=== PATIENT | male | born 1940 | race Caucasian/White ===

== ENCOUNTER 2017-05-15 11:19 | Emergency (ER) | payer MEDICARE, OTHER ==
[2017-05-15 12:43] VITALS: BP 163/93
== END 2017-05-15 15:36 | disposition left against medical advice (07) ==
LOC: JP.ED 11:19
DX: Z53.21 Procedure and treatment not carried out due to patient leaving prior to being seen by health care provider (principal)

== ENCOUNTER 2018-12-23 12:03 | Inpatient (IN) | payer MEDICARE ==
--- NOTE | 2018-12-23 12:30 | EDM.PDOC ---
ED HPI GENERAL MEDICAL PROBLEM - General Chief Complaint: Chest Pain Stated Complaint: [facility] Time Seen by Provider: 12/23/18 12:15 Source of Information: Reports: Patient, EMS History Limitations: Reports: No Limitations - History of Present Illness INITIAL COMMENTS - FREE TEXT/NARRATIVE: 78-year-old male who lives independently slipped on the ice one week ago falling hard on his left side. It's been 7 days and is having persistent significant left-sided chest wall pain, some friends visited him today and saw how miserable he was so called the ambulance. He is having some pleuritic pain with breathing but no shortness of breath, denies fevers or chills or abdominal pain. Did not hurt himself anywhere else such as an extremity or neck or head. His pain is fairly localized to the left lateral chest wall. Onset: Sudden Duration: Day(s): (7 days ago) Location: Reports: Chest (Left lateral chest) Quality: Reports: Sharp, Stabbing Worsens with: Reports: Breathing, Movement Associated Symptoms: Reports: No Other Symptoms rib Pain Score (Numeric/FACES): 7 - Related Data Allergies Allergy/AdvReac Type Severity Reaction Status Date / Time No Known Allergies Allergy Verified 12/23/18 12:09 Home Meds: Home Meds Donepezil HCl 1 tab PO DAILY 11/05/13 [History] Furosemide 40 mg PO DAILY 11/05/13 [History] Lisinopril 40 mg PO DAILY 11/05/13 [History] PARoxetine HCl [Paroxetine HCl] 20 mg PO DAILY 11/05/13 [History] Simvastatin 40 mg PO DAILY 11/05/13 [History] Warfarin Sodium 7.5 mg PO DAILY 11/05/13 [History] Albuterol [Proventil] 2.5 mg INH BID 09/22/14 [History] Ipratropium [Atrovent] 1 applic INH QID 09/22/14 [History] Aspirin [Low Dose Aspirin EC] 81 mg PO DAILY 10/18/14 [History] Multivitamin with Minerals [Multiple Vitamin] 1 tab PO DAILY 10/18/14 [History] amLODIPine [Norvasc] 5 mg PO BID 10/18/14 [History] Oxybutynin Chloride [Ditropan Xl] 10 mg PO DAILY 12/23/18 [History] Tamsulosin [Flomax] 0.4 mg PO DAILY 12/23/18 [History] Past Medical History Cardiovascular History: Reports: High Cholesterol, Hypertension, SOB on Exertion Respiratory History: Reports: COPD, Sleep Apnea Other Respiratory History: c-pap Gastrointestinal History: Reports: Chronic Diarrhea, GERD Genitourinary History: Reports: BPH Musculoskeletal History: Reports: Osteoarthritis Neurological History: Reports: Concussion Endocrine/Metabolic History: Reports: Obesity/BMI 30+ Oncologic (Cancer) History: Reports: Leukemia - Infectious Disease History Infectious Disease History: Reports: C-Difficile, Measles, Mumps - Past Surgical History HEENT Surgical History: Reports: Oral Surgery, Tonsillectomy GI Surgical History: Reports: Appendectomy, Cholecystectomy, Colonoscopy, EGD Social & Family History - Tobacco Use Smoking Status *Q: Former Smoker Used Tobacco, but Quit: Yes Month/Year Tobacco Last Used: 20 - Caffeine Use Caffeine Use: Reports: Coffee - Recreational Drug Use Recreational Drug Use: No ED ROS GENERAL - Review of Systems Review Of Systems: See Below Constitutional: Denies: Fever Respiratory: Reports: Pleuritic Chest Pain Cardiovascular: Reports: Chest Pain. Denies: Palpitations GI/Abdominal: Denies: Abdominal Pain, Nausea, Vomiting : Reports: No Symptoms Skin: Denies: Bruising (No significant bruising over injured area) Neurological: Denies: Headache Psychiatric: Reports: No Symptoms ED EXAM, GENERAL - Physical Exam Exam: See Below Exam Limited By: No Limitations General Appearance: Alert, No Apparent Distress Eye Exam: Bilateral Eye: EOMI Head: Atraumatic Neck: Supple Respiratory/Chest: No Respiratory Distress, Lungs Clear, Other (Patient is very tender to palpation on the left lateral chest, no deformity or crepitus is felt) Cardiovascular: Regular Rate, Rhythm GI/Abdominal: Soft, Non-Tender Extremities: Pedal Edema (Chest x-ray some pretibial edema, some chronic venous stasis changes of the skin on the lower left leg) Neurological: Alert, Oriented Psychiatric: Normal Affect, Normal Mood Skin Exam: Warm, Dry Course - Vital Signs Last Recorded V/S: Last Vital Signs Temp 98.8 F 12/24/18 03:00 Pulse 79 12/24/18 03:00 Resp 20 12/24/18 03:00 BP 139/52 L 12/24/18 03:00 Pulse Ox 91 L 12/24/18 03:00 - Orders/Labs/Meds Orders: Medication Orders Acetaminophen (Tylenol) 650 mg PO Q4H PRN PRN Reason: Pain (Mild 1-3)/fever Last Admin: 12/24/18 03:22 Dose: 650 mg Admin: 12/23/18 17:17 Dose: 650 mg Albuterol (Proventil Neb Soln) 2.5 mg NEB Q4H PRN PRN Reason: Shortness Of Breath/wheezing Amlodipine Besylate (Norvasc) 5 mg PO BID [facility] Last Admin: 12/23/18 21:14 Dose: 5 mg Aspirin (Halfprin) 81 mg PO DAILY [facility] Donepezil HCl (Aricept) 10 mg PO DAILY [facility] Furosemide (Lasix) 40 mg PO DAILY [facility] Hydromorphone HCl (Dilaudid) 0.5 mg IVPUSH Q2H PRN PRN Reason: Pain (severe 7-10) Sodium Chloride (Normal Saline) 1,000 mls @ 125 mls/hr IV ASDIRECTED [facility] Last Admin: 12/24/18 06:05 Dose: 125 mls/hr Infusion: 12/24/18 06:05 Dose: 125 mls/hr Admin: 12/23/18 22:06 Dose: 125 mls/hr Ipratropium [place] (Atrovent) 0.5 mg INH QIDRT [facility] Last Admin: 12/23/18 21:22 Dose: 0.5 mg Admin: 12/23/18 17:39 Dose: 0.5 mg Lisinopril (Prinivil) 40 mg PO DAILY [facility] Ondansetron HCl (Zofran) 4 mg IV Q4H PRN PRN Reason: Nausea/Vomiting Oxybutynin Chloride (Oxybutynin) 5 mg PO BID [facility] Oxycodone HCl (Oxycodone) 5 mg PO Q4H PRN PRN Reason: Pain (moderate 4-6) Last Admin: 12/24/18 03:22 Dose: 5 mg Admin: 12/23/18 21:21 Dose: 5 mg Admin: 12/23/18 16:47 Dose: 5 mg Paroxetine HCl (Paxil) 20 mg PO DAILY [facility] Senna/Docusate Sodium (Senna Plus) 1 tab PO BID PRN PRN Reason: Constipation Simvastatin (Zocor) 40 mg PO DAILY [facility] Sodium Chloride (Saline Flush) 10 ml FLUSH ASDIRECTED PRN PRN Reason: Keep Vein Open Tamsulosin HCl (Flomax) 0.4 mg PO DAILY [facility] Warfarin Sodium (Coumadin) 7.5 mg PO DAILY@1300 [facility] Labs: Laboratory Tests 12/23/18 12/23/18 Range/Units 13:05 13:05 WBC 116.8 H* (4.5-11.0) K/uL RBC 3.35 L (4.30-5.90) M/uL Hgb 10.6 L (12.0-15.0) g/dL Hct 35.3 L (40.0-54.0) % MCV 105 H (80-98) fL MCH 32 H (27-31) pg MCHC 30 L (32-36) % Plt Count 241 (150-400) K/uL Neut % (Auto) 2 L (36-66) % Lymph % (Auto) 98 H (24-44) % [place] % (Auto) 0 L (2-6) % Eos % (Auto) 0 L (2-4) % Baso % (Auto) 0 (0-1) % Sodium 148 (140-148) mmol/L Potassium 3.7 (3.6-5.2) mmol/L Chloride 109 H (100-108) mmol/L Carbon Dioxide 28 (21-32) mmol/L Anion Gap 14.7 H (5.0-14.0) mmol/L BUN 42 H (7-18) mg/dL Creatinine 1.6 H (0.8-1.3) mg/dL Est Cr Clr Drug Dosing 40.56 mL/min Estimated GFR (MDRD) 42 L (>60) Glucose 113 H (74-106) mg/dL Calcium 9.0 (8.5-10.1) mg/dL Total Bilirubin 1.2 H (0.2-1.0) mg/dL AST 56 H (15-37) U/L ALT 63 (12-78) U/L Alkaline Phosphatase 58 (46-116) U/L Total Protein 7.0 (6.4-8.2) g/dL Albumin 3.2 L (3.4-5.0) g/dL Globulin 3.8 H (2.3-3.5) g/dL Albumin/Globulin Ratio 0.8 L (1.2-2.2) Meds: Medications Generic Name Dose Route Start Last Admin Trade Name Freq PRN Reason Stop Dose Admin Acetaminophen 650 mg 12/23/18 16:04 12/24/18 03:22 Tylenol PO 650 mg Q4H PRN Administration Pain (Mild 1-3)/fever Albuterol 2.5 mg 12/23/18 16:04 Proventil Neb Soln NEB Q4H PRN Shortness Of Breath/wheezing Amlodipine Besylate 5 mg 12/23/18 21:00 12/23/18 21:14 Norvasc PO 5 mg BID [facility] Administration Aspirin 81 mg 12/24/18 09:00 Halfprin PO DAILY [facility] Donepezil HCl 10 mg 12/24/18 09:00 Aricept PO DAILY [facility] Furosemide 40 mg 12/24/18 09:00 Lasix PO DAILY [facility] Hydromorphone HCl 0.5 mg 12/23/18 16:04 Dilaudid IVPUSH Q2H PRN Pain (severe 7-10) Sodium Chloride 1,000 mls @ 125 mls/hr 12/23/18 16:04 12/24/18 06:05 Normal Saline IV 125 mls/hr ASDIRECTED [facility] Administration Ipratropium [place] 0.5 mg 12/23/18 16:04 12/23/18 21:22 Atrovent INH 0.5 mg QIDRT [facility] Administration Lisinopril 40 mg 12/24/18 09:00 Prinivil PO DAILY [facility] Ondansetron HCl 4 mg 12/23/18 16:04 Zofran IV Q4H PRN Nausea/Vomiting Oxybutynin Chloride 5 mg 12/24/18 09:00 Oxybutynin PO BID [facility] Oxycodone HCl 5 mg 12/23/18 16:04 12/24/18 03:22 Oxycodone PO 5 mg Q4H PRN Administration Pain (moderate 4-6) Paroxetine HCl 20 mg 12/24/18 09:00 Paxil PO DAILY [facility] Senna/Docusate Sodium 1 tab 12/23/18 16:04 Senna Plus PO BID PRN Constipation Simvastatin 40 mg 12/24/18 09:00 Zocor PO DAILY [facility] Sodium Chloride 10 ml 12/23/18 16:04 Saline Flush FLUSH ASDIRECTED PRN Keep Vein Open Tamsulosin HCl 0.4 mg 12/24/18 09:00 Flomax PO DAILY [facility] Warfarin Sodium 7.5 mg 12/24/18 13:00 Coumadin PO DAILY@1300 [facility] Discontinued Medications Generic Name Dose Route Start Last Admin Trade Name Alix PRN Reason Stop Dose Admin Fentanyl 25 mcg 12/23/18 13:49 12/23/18 14:06 Sublimaze IVPUSH 12/23/18 13:50 25 mcg ONETIME ONE Administration Sodium Chloride 1,000 mls @ 125 mls/hr 12/23/18 14:00 12/23/18 14:06 Normal Saline IV 125 mls/hr ASDIRECTED [facility] Administration - Re-Assessments/Exams Free Text/Narrative Re-Assessment/Exam: 12/23/18 12:30 CT the chest without contrast was obtained. 12/23/18 13:[address] confirmed several rib fractures on the left side a likely hemothorax. No pneumothorax seen. CBC revealed a white count of 116,000 with 98% lymphs, likely CLL possibly undiagnosed. He has not had any previous white count levels drawn here at the hospital. He is a patient of [email or web address]. 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 The patient himself does not remember any treatment or diagnosis. This was discussed with Dr. Londono, he's considering admitting the patient versus transfer. An IV was started with 125 mL of normal saline an hour along with a small dose of fentanyl, 25 g for pain Departure - Departure Time of Disposition: 15:56 Disposition: Admitted As Inpatient 68 Condition: Fair Clinical Impression: Chronic lymphocytic leukemia, Hemothorax on left Multiple fractures of ribs of left side Qualifiers: Encounter type: initial encounter Fracture type: closed Qualified Code(s): S22.42XA - Multiple fractures of ribs, left side, initial encounter for closed fracture - Discharge Information
--- NOTE | 2018-12-23 13:22 | CT ---
Chest wo Cont CLINICAL HISTORY: Previous chest trauma TECHNIQUE: Transverse scans were obtained from the thoracic inlet to the lung bases without contrast. Auto dosage reduction and iterative reconstruction techniques employed. COMPARISONS: None FINDINGS: There is a small there is a 2 mm noncalcified nodule in the left upper lobe on image #41. There is a small to moderate left the pleural effusion. The density measurements are somewhat high. This may represent hemothorax. There is some compressive atelectasis in the left lower lobe. There is a nondisplaced fracture of the posterior lateral aspect aspect of the left fifth rib. There is a minimally displaced fracture of the posterior sixth seventh and eighth and ninth ribs. There is some density in the intercostal regions which likely represents a small hematoma. There is a compression deformity of L1. Chronology is uncertain There is a small calcified granuloma in the right middle lobe. There is also punctate calcification in the left upper lobe. There is a 3 mm noncalcified nodule in the lingula on image #56. IMPRESSION: Fractures of the left fifth through ninth posterior ribs may represent flail chest. [id number] left pleural effusion versus hemothorax Left lower lobe volume loss The compression fracture of L1 of uncertain chronology. Scattered nodules most which are calcified. There is a single lingular noncalcified nodule. Follow-up using Fleischner Society criteria recommended. FLEISCHNER CRITERIA (2017) Incidental Pulmonary Nodule Follow-up SOLID NODULES: Nodule size <6 mm -single and multiple nodules in low risk patient: no routine follow-up -single and multiple nodules in high risk patient: optional CT at 12 months Nodule size 6-8 mm -single nodule in low risk patient: CT at 6-12 months, then consider CT at 18-24 months -multiple nodules in low risk patient: CT at 3-6 months, then consider CT at 18-24 months -single nodule in high risk patient: CT at 6-12 months, then CT at 18-24 months -multiple nodules in high risk patient: CT at 3-6 months, then CT at 18-24 months Nodule size >8 mm -single nodule in both low and high risk patient: consider CT, PET/CT, or tissue sampling at 3 months -multiple nodules in low risk patient: CT at 3-6 months, then consider CT at 18-24 months -multiple nodules in high risk patient: CT at 3-6 months, then CT at 18-24 months SUB-SOLID NODULES: Nodule size <6 mm -single ground-glass, part solid: no routine follow-up -multiple: CT at 3-6 months. If stable, consider CT at 2 and 4 years Nodule size ?6 mm -single ground-glass: CT at 6-12 months to confirm persistence, then CT every 2 years until 5 years -single part solid: CT at 3-6 months to confirm persistence. If unchanged and solid component remains <6 mm, annual CT should be performed for 5 years -multiple: CT at 3-6 months. Subsequent management based on the most suspicious nodule(s) Implications for Patient Care 1. These guidelines apply to incidental nodules, which can be managed according to the specific recommendations. 2. These guidelines do not apply to patients younger than 35 years, immunocompromised patients, or patients with cancer. 3. For lung cancer screening, adherence to the existing [employer] Lung CT Screening Reporting and Data System (Lung-RADS) guidelines is recommended.
[2018-12-23] MEDS ORDERED: fentaNYL 100 MCG/2 ML SDV IVPUSH ONE (13:49)
[2018-12-23] MEDS ORDERED: Sodium Chloride 0.9% 1,000 ML IV SCH (14:00)
--- NOTE | 2018-12-23 15:56 | PCM.HP ---
H&P History of Present Illness - General Date of Service: 12/23/18 Admit Problem/Dx: Admission Diagnosis/Problem Admission Diagnosis/Problem Fracture of multiple ribs Source of Information: Patient, Old Records, Provider, RN Notes Reviewed History Limitations: Reports: No Limitations - History of Present Illness Initial Comments - Free Text/Narative: Mr. Whitney is a 78-year-old gentleman who was through the emergency department with dehydration and left chest pain secondary to multiple rib fractures. He fell about a week ago and is had severe pain in his left chest since then. Pain has severely limited his movement causing difficulty with transfers and even ambulation. As a result he is not been eating well or taking in liquids. On evaluation in the emergency department therefore to 5 fractures noted on the left with a small hemothorax. He is on long-term oral anticoagulation with warfarin. His white blood cell count was markedly elevated at 116,000, review of old records from [place] show a known diagnosis of chronic lymphocytic leukemia. He has a history of chronic kidney disease stage III and creatinine is elevated likely secondary to dehydration and intravascular volume depletion. rib Pain Score (Numeric/FACES): 7 - Related Data Allergies/Adverse Reactions: Allergies Allergy/AdvReac Type Severity Reaction Status Date / Time No Known Allergies Allergy Verified 12/23/18 12:09 Home Medications: Home Meds Donepezil HCl 1 tab PO DAILY 11/05/13 [History] Furosemide 40 mg PO DAILY 11/05/13 [History] Lisinopril 40 mg PO DAILY 11/05/13 [History] PARoxetine HCl [Paroxetine HCl] 20 mg PO DAILY 11/05/13 [History] Simvastatin 40 mg PO DAILY 11/05/13 [History] Warfarin Sodium 7.5 mg PO DAILY 11/05/13 [History] Albuterol [Proventil] 2.5 mg INH BID 09/22/14 [History] Ipratropium [Atrovent] 1 applic INH QID 09/22/14 [History] Aspirin [Low Dose Aspirin EC] 81 mg PO DAILY 10/18/14 [History] Multivitamin with Minerals [Multiple Vitamin] 1 tab PO DAILY 10/18/14 [History] amLODIPine [Norvasc] 5 mg PO BID 10/18/14 [History] Oxybutynin Chloride [Ditropan Xl] 10 mg PO DAILY 12/23/18 [History] Tamsulosin [Flomax] 0.4 mg PO DAILY 12/23/18 [History] Past Medical History Cardiovascular History: Reports: High Cholesterol, Hypertension, SOB on Exertion Respiratory History: Reports: COPD, Sleep Apnea Other Respiratory History: c-pap Gastrointestinal History: Reports: Chronic Diarrhea, GERD Genitourinary History: Reports: BPH Musculoskeletal History: Reports: Osteoarthritis Neurological History: Reports: Concussion Endocrine/Metabolic History: Reports: Obesity/BMI 30+ Oncologic (Cancer) History: Reports: Leukemia - Infectious Disease History Infectious Disease History: Reports: C-Difficile, Measles, Mumps - Past Surgical History HEENT Surgical History: Reports: Oral Surgery, Tonsillectomy GI Surgical History: Reports: Appendectomy, Cholecystectomy, Colonoscopy, EGD Social & Family History - Tobacco Use Smoking Status *Q: Former Smoker Used Tobacco, but Quit: Yes Month/Year Tobacco Last Used: 20 - Caffeine Use Caffeine Use: Reports: Coffee - Recreational Drug Use Recreational Drug Use: No H&P Review of Systems - Review of Systems: Review Of Systems: See Below General: Reports: Weakness, Decreased Appetite. Denies: Fever, Chills HEENT: Reports: No Symptoms Pulmonary: Reports: Shortness of Breath. Denies: Wheezing, Pleuritic Chest Pain , Cough, Sputum, Hemoptysis Cardiovascular: Reports: Dyspnea on Exertion, Other (Chest wall pain). Denies: Palpitations, Orthopnea, PND, Edema, Lightheadedness Gastrointestinal: Reports: No Symptoms Genitourinary: Reports: No Symptoms Musculoskeletal: Reports: No Symptoms Skin: Reports: No Symptoms Psychiatric: Reports: No Symptoms Neurological: Reports: No Symptoms Hematologic/Lymphatic: Reports: No Symptoms Immunologic: Reports: No Symptoms Exam - Exam Exam: See Below - Vital Signs Vital Signs: Last Vital Signs Temp 98.1 F 12/23/18 12:11 Pulse 87 12/23/18 15:26 Resp 16 12/23/18 15:26 BP 143/77 H 12/23/18 15:26 Pulse Ox 89 L 12/23/18 15:26 Weight: 219 lb - Exam Quality Assessment: Supplemental Oxygen, DVT Prophylaxis General: Alert, Oriented, Cooperative, Moderate Distress HEENT: Conjunctiva Clear, Hearing Intact, Mucosa Moist & [place], Normal Nasal Septum, Posterior Pharynx Clear, Pupils Equal Neck: Supple, Trachea Midline, +2 Carotid Pulse wo Bruit Lungs: Clear to Auscultation, Normal Respiratory Effort Cardiovascular: Regular Rate, Regular Rhythm, Normal S1, Normal S2. No: Systolic Murmur, Diastolic Murmur GI/Abdominal Exam: Soft, Non-Tender, No Organomegaly, No Distention Extremities: Non-Tender, No Pedal Edema Skin: Warm, Dry Neurological: Cranial Nerves Intact, Strength Equal Bilateral, Normal Speech, Normal Tone, Sensation Intact. No: Focal Deficit Neuro Extensive - Mental Status: Alert, Oriented x3, Normal Mood/Affect, Normal Cognition, Memory Intact - Patient Data Lab Results Last 24 hrs: Laboratory Results - last 24 hr 12/23/18 12/23/18 Range/Units 13:05 13:05 WBC 116.8 H* (4.5-11.0) K/uL RBC 3.35 L (4.30-5.90) M/uL Hgb 10.6 L (12.0-15.0) g/dL Hct 35.3 L (40.0-54.0) % MCV 105 H (80-98) fL MCH 32 H (27-31) pg MCHC 30 L (32-36) % Plt Count 241 (150-400) K/uL Neut % (Auto) 2 L (36-66) % Lymph % (Auto) 98 H (24-44) % [place] % (Auto) 0 L (2-6) % Eos % (Auto) 0 L (2-4) % Baso % (Auto) 0 (0-1) % Sodium 148 (140-148) mmol/L Potassium 3.7 (3.6-5.2) mmol/L Chloride 109 H (100-108) mmol/L Carbon Dioxide 28 (21-32) mmol/L Anion Gap 14.7 H (5.0-14.0) mmol/L BUN 42 H (7-18) mg/dL Creatinine 1.6 H (0.8-1.3) mg/dL Est Cr Clr Drug Dosing 40.56 mL/min Estimated GFR (MDRD) 42 L (>60) Glucose 113 H (74-106) mg/dL Calcium 9.0 (8.5-10.1) mg/dL Total Bilirubin 1.2 H (0.2-1.0) mg/dL AST 56 H (15-37) U/L ALT 63 (12-78) U/L Alkaline Phosphatase 58 (46-116) U/L Total Protein 7.0 (6.4-8.2) g/dL Albumin 3.2 L (3.4-5.0) g/dL Globulin 3.8 H (2.3-3.5) g/dL Albumin/Globulin Ratio 0.8 L (1.2-2.2) Result Diagrams: 12/23/18 13:05 12/23/18 13:05 *Q Meaningful Use (ADM) - VTE *Q VTE Pharmacological Contraindications *Q: High INR Value - VTE Risk Assess *Q Each Risk Factor Represents 1 Point: Obesity ( BMI > 25 kg/m2), Abnormal Pulmonary Function (COPD) Total Score 1 Point Risk Factors: 2 Each Risk Factor Represents 2 Points: Age 60 - 74 Years Total Score 2 Point Risk Factors: 2 Each Risk Factor Represents 3 Points: Age 75 Years or Greater Total Score 3 Point Risk Factors: 3 Each Risk Factor Represents 5 Points: None Total Score 5 Point Risk Factors: 0 Venous Thromboembolism Risk Factor Score *Q: 7 Problem List Initiated/Reviewed/Updated: Yes Orders Last 24hrs: Active Orders 24 hr Category Date Time Status Patient Status Manage Transfer [TRANSFER] Routine ADT 12/23/18 15:22 Ordered Sodium Chloride 0.9% [Normal Saline] 1,000 ml Med 12/23/18 14:00 Active IV ASDIRECTED Resuscitation Status Routine Resus Stat 12/23/18 15:27 Ordered Medication Orders Sodium Chloride (Normal Saline) 1,000 mls @ 125 mls/hr IV ASDIRECTED [facility] Last Admin: 12/23/18 14:06 Dose: 125 mls/hr Assessment/Plan Comment:: ASSESSMENT AND PLAN MULTIPLE LEFT-SIDED RIB FRACTURES-secondary to a fall approximately one week ago. He lives by himself and is been unable to safely function at home or take care of himself because of difficulty with transfers and even ambulation. As a result of poor oral intake he's developed dehydration and associated acute on chronic renal insufficiency. -IV fluids for hydration -Pain medication as needed -Physical therapy consult -[facility] DEHYDRATION -IV fluids as above ACUTE ON CHRONIC RENAL INSUFFICIENCY-secondary to dehydration and intravascular volume depletion -IV fluids -Closely monitor urine output and renal function COPD-no evidence of acute exacerbation -Continue usual outpatient medications -Nebulized albuterol every 4 hours as needed CHRONIC LYMPHOCYTIC LEUKEMIA-known diagnosis, currently untreated. Leukocytosis significantly increased from previous levels. -Outpatient oncology consult MAINTENANCE ISSUES -DVT prophylaxis; current therapy with warfarin should provide adequate DVT prophylaxis -GI prophylaxis; not indicated -Godwin catheter; not indicated -Nutrition; regular diet -Nicotine dependence;Not required CODE STATUS-FULL CODE ADMISSION STATUS-patient will be admitted to inpatient status, expect at least a 2 night hospital stay for evaluation and management of problems as outlined above. At the time of this admission I do not reasonably expected evaluation and management of this problem will require more than a 96 hour hospital stay. DISPOSITION-anticipate discharge to home after the hospital stay. PRIMARY CARE PROVIDER-Dr. Johnson
[2018-12-23] MEDS ORDERED: Ondansetron 4 MG/2 ML SDV IV PRN (16:04)
[2018-12-23] MEDS ORDERED: Sodium Chloride 0.9% 10 ML Syringe FLUSH PRN (16:04)
[2018-12-23] MEDS ORDERED: HYDROmorphone 0.5 MG/0.5 ML Syringe IVPUSH PRN (16:04)
[2018-12-23] MEDS: oxyCODONE 5 MG Tab PO PRN ×2 (16:47→21:21)
[2018-12-23] MEDS: Acetaminophen 325 MG Tab PO PRN (17:17)
[2018-12-23] MEDS: Ipratropium 0.02% 0.5 MG/2.5 ML Neb Soln INH SCH ×2 (17:39→21:22)
[2018-12-23] MEDS: amLODIPine 5 MG Tab PO SCH (21:14)
[2018-12-23] MEDS: Sodium Chloride 0.9% 1,000 ML IV SCH (22:06)
[2018-12-24] MEDS: oxyCODONE 5 MG Tab PO PRN ×4 (03:22→19:41)
[2018-12-24] MEDS: Acetaminophen 325 MG Tab PO PRN ×5 (03:22→23:28)
[2018-12-24] MEDS: Sodium Chloride 0.9% 1,000 ML IV SCH ×2 (06:05→14:39)
[2018-12-24] MEDS: Ipratropium 0.02% 0.5 MG/2.5 ML Neb Soln INH SCH ×4 (07:22→20:32)
[2018-12-24] MEDS: Simvastatin 20 MG Tab PO SCH (09:28)
[2018-12-24] MEDS: Oxybutynin 5 MG Tab PO SCH ×2 (09:28→20:35)
[2018-12-24] MEDS: Furosemide 40 MG Tab PO SCH (09:28)
[2018-12-24] MEDS: Tamsulosin 0.4 MG Cap.ER PO SCH ×2 (09:28→09:35)
[2018-12-24] MEDS: PARoxetine 20 MG Tab PO SCH (09:29)
[2018-12-24] MEDS: amLODIPine 5 MG Tab PO SCH ×2 (09:30→20:35)
[2018-12-24] MEDS: Donepezil 10 MG Tab PO SCH (09:30)
[2018-12-24] MEDS: Lisinopril 20 MG Tab PO SCH (09:30)
[2018-12-24] MEDS: Aspirin 81 MG Tab.EC PO SCH (09:30)
[2018-12-24] MEDS ORDERED: Warfarin 2.5 MG Tab PO SCH (13:00)
--- NOTE | 2018-12-24 16:18 | PCM.PN ---
- General Info Date of Service: 12/24/18 Subjective Update: Mr. Whitney has been stable since admission yesterday, reports that his chest wall pain has been fairly well controlled with current pain medications. Vital signs have been stable and he has remained afebrile. Functional Status: Reports: Pain Controlled, Tolerating Diet, Urinating - Review of Systems General: Reports: Weakness. Denies: Fever, Chills Pulmonary: Reports: Shortness of Breath. Denies: Pleuritic Chest Pain, Cough, Sputum, Hemoptysis, Wheezing Cardiovascular: Reports: Dyspnea on Exertion, Other (Chest wall pain secondary to rib fractures). Denies: Palpitations, Orthopnea, PND, Edema, Lightheadedness Gastrointestinal: Reports: No Symptoms - Patient Data Vitals - Most Recent: Last Vital Signs Temp 100 F 12/24/18 15:59 Pulse 85 12/24/18 15:59 Resp 20 12/24/18 15:59 BP 134/62 12/24/18 15:59 Pulse Ox 90 L 12/24/18 15:59 Weight - Most Recent: 222 lb 9.6 oz I&O - Last 24 Hours: Intake & Output 12/24/18 12/24/18 12/24/18 06:59 14:59 22:59 Intake Total 2167 780 600 Output Total 150 Balance 2017 780 600 Lab Results Last 24 Hours: Laboratory Results - last 24 hr 12/24/18 12/24/18 12/24/18 Range/Units 03:07 03:07 03:07 WBC 100.4 H* (4.5-11.0) K/uL RBC 3.07 L (4.30-5.90) M/uL Hgb 10.0 L (12.0-15.0) g/dL Hct 32.8 L (40.0-54.0) % MCV 107 H (80-98) fL MCH 33 H (27-31) pg MCHC 31 L (32-36) % Plt Count 216 (150-400) K/uL Add Manual Diff Yes Neutrophils % (Manual) 3 L (36-66) % Lymphocytes % (Manual) 93 H (24-44) % Monocytes % (Manual) 2 (2-6) % PT 50.5 H (9.5-12.0) sec INR 5.03 H* (0.80-1.20) Sodium 146 (140-148) mmol/L Potassium 3.9 (3.6-5.2) mmol/L Chloride 111 H (100-108) mmol/L Carbon Dioxide 28 (21-32) mmol/L Anion Gap 10.9 (5.0-14.0) mmol/L BUN 33 H (7-18) mg/dL Creatinine 1.2 (0.8-1.3) mg/dL Est Cr Clr Drug Dosing 54.07 mL/min Estimated GFR (MDRD) 59 L (>60) Glucose 115 H (74-106) mg/dL Calcium 8.5 (8.5-10.1) mg/dL Med Orders - Current: Current Medications Acetaminophen (Tylenol) 650 mg PO Q4H PRN PRN Reason: Pain (Mild 1-3)/fever Last Admin: 12/24/18 14:02 Dose: 650 mg Albuterol (Proventil Neb Soln) 2.5 mg NEB Q4H PRN PRN Reason: Shortness Of Breath/wheezing Amlodipine Besylate (Norvasc) 5 mg PO BID [facility] Last Admin: 12/24/18 09:30 Dose: 5 mg Aspirin (Halfprin) 81 mg PO DAILY [facility] Last Admin: 12/24/18 09:30 Dose: 81 mg Donepezil HCl (Aricept) 10 mg PO DAILY [facility] Last Admin: 12/24/18 09:30 Dose: 10 mg Furosemide (Lasix) 40 mg PO DAILY [facility] Last Admin: 12/24/18 09:28 Dose: 40 mg Hydromorphone HCl (Dilaudid) 0.5 mg IVPUSH Q2H PRN PRN Reason: Pain (severe 7-10) Sodium Chloride (Normal Saline) 1,000 mls @ 125 mls/hr IV ASDIRECTED [facility] Last Admin: 12/24/18 14:39 Dose: 125 mls/hr Ipratropium [place] (Atrovent) 0.5 mg INH QIDRT [facility] Last Admin: 12/24/18 14:37 Dose: 0.5 mg Lisinopril (Prinivil) 40 mg PO DAILY [facility] Last Admin: 12/24/18 09:30 Dose: 40 mg Ondansetron HCl (Zofran) 4 mg IV Q4H PRN PRN Reason: Nausea/Vomiting Oxybutynin Chloride (Oxybutynin) 5 mg PO BID [facility] Last Admin: 12/24/18 09:28 Dose: 5 mg Oxycodone HCl (Oxycodone) 5 mg PO Q4H PRN PRN Reason: Pain (moderate 4-6) Last Admin: 12/24/18 14:03 Dose: 5 mg Paroxetine HCl (Paxil) 20 mg PO DAILY [facility] Last Admin: 12/24/18 09:29 Dose: 20 mg Senna/Docusate Sodium (Senna Plus) 1 tab PO BID PRN PRN Reason: Constipation Simvastatin (Zocor) 40 mg PO DAILY [facility] Last Admin: 12/24/18 09:28 Dose: 40 mg Sodium Chloride (Saline Flush) 10 ml FLUSH ASDIRECTED PRN PRN Reason: Keep Vein Open Tamsulosin HCl (Flomax) 0.4 mg PO DAILY [facility] Last Admin: 12/24/18 09:35 Dose: Not Given Discontinued Medications Fentanyl (Sublimaze) 25 mcg IVPUSH ONETIME ONE Stop: 12/23/18 13:50 Last Admin: 12/23/18 14:06 Dose: 25 mcg Sodium Chloride (Normal Saline) 1,000 mls @ 125 mls/hr IV ASDIRECTED [facility] Last Admin: 12/23/18 14:06 Dose: 125 mls/hr Phytonadione (Aquamephyton) 1 mg SUBCUT ONETIME ONE Stop: 12/24/18 09:01 Last Admin: 12/24/18 09:27 Dose: 1 mg Warfarin Sodium (Coumadin) 7.5 mg PO DAILY@1300 [facility] - Exam Quality Assessment: DVT Prophylaxis General: Alert, Oriented, Cooperative, Mild Distress Lungs: Clear to Auscultation, Normal Respiratory Effort, Decreased Breath Sounds. No: Wheezing Cardiovascular: Regular Rate, Regular Rhythm, No Murmurs GI/Abdominal Exam: Soft, Non-Tender, No Organomegaly, No Distention Extremities: Non-Tender, No Pedal Edema - Problem List Review Problem List Initiated/Reviewed/Updated: Yes - My Orders Last 24 Hours: My Active Orders 12/23/18 15:27 Resuscitation Status Routine 12/23/18 16:04 Patient Status [ADT] Routine Ambulate [RC] QID Height and Weight [RC] DAILY Intake and Output [RC] QSHIFT Notify Provider Vital Signs [RC] ASDIRECTED Oxygen Therapy [RC] PRN Peripheral IV Care [RC] Q12H RT Aerosol Therapy [RC] ASDIRECTED Up With Assistance [RC] ASDIRECTED Up to Chair [RC] QID Vital Signs [RC] Q4H PT Evaluation and Treatment [CONS] Routine Acetaminophen [Tylenol] 650 mg PO Q4H PRN Albuterol [Proventil Neb Soln] 2.5 mg NEB Q4H PRN Docusate Sodium/Sennosides [Senna Plus] 1 tab PO BID PRN HYDROmorphone [Dilaudid] 0.5 mg IVPUSH Q2H PRN Ipratropium [Atrovent] 0.5 mg INH QIDRT Ondansetron [Zofran] 4 mg IV Q4H PRN Sodium Chloride 0.9% [Normal Saline] 1,000 ml IV ASDIRECTED Sodium Chloride 0.9% [Saline Flush] 10 ml FLUSH ASDIRECTED PRN oxyCODONE 5 mg PO Q4H PRN Peripheral IV Insertion Adult [OM.PC] Routine VTE Pharmacological Contraindications [AST] Per Unit Routine 12/23/18 21:00 amLODIPine [Norvasc] 5 mg PO BID 12/24/18 09:00 Aspirin [Halfprin] 81 mg PO DAILY Donepezil [Aricept] 10 mg PO DAILY Furosemide [Lasix] 40 mg PO DAILY Lisinopril [Prinivil] 40 mg PO DAILY Oxybutynin 5 mg PO BID PARoxetine [Paxil] 20 mg PO DAILY Simvastatin [Zocor] 40 mg PO DAILY Tamsulosin [Flomax] 0.4 mg PO DAILY 12/25/18 05:00 INR,PT,PROTHROMBIN TIME [COAG] Timed - Plan Plan:: ASSESSMENT AND PLAN MULTIPLE LEFT-SIDED RIB FRACTURES-secondary to a fall approximately one week ago. He lives by himself and is been unable to safely function at home or take care of himself because of difficulty with transfers and even ambulation. Renal function has improved following hydration -Saline lock IV -Pain medication as needed -Physical therapy -Short-term long-term placement DEHYDRATION-resolved following hydration ACUTE ON CHRONIC RENAL INSUFFICIENCY-improved with hydration COPD-no evidence of acute exacerbation -Continue usual outpatient medications -Nebulized albuterol every 4 hours as needed CHRONIC LYMPHOCYTIC LEUKEMIA-known diagnosis, currently untreated. Leukocytosis significantly increased from previous levels. -Outpatient oncology consult MAINTENANCE ISSUES -DVT prophylaxis; current therapy with warfarin should provide adequate DVT prophylaxis -GI prophylaxis; not indicated -Godwin catheter; not indicated -Nutrition; regular diet -Nicotine dependence;Not required CODE STATUS-FULL CODE ADMISSION STATUS-patient will be admitted to inpatient status, expect at least a 2 night hospital stay for evaluation and management of problems as outlined above. At the time of this admission I do not reasonably expected evaluation and management of this problem will require more than a 96 hour hospital stay. DISPOSITION-anticipate discharge to home after the hospital stay. PRIMARY CARE PROVIDER-Dr. Johnson
[2018-12-24] MEDS: Albuterol 0.083% 2.5 MG/3 ML Neb Soln NEB PRN ×2 (19:28→23:28)
[2018-12-24] MEDS ORDERED: Azithromycin 500 MG in Sodium Chloride 0.9% 250 ML IV ONE (19:39)
[2018-12-24] MEDS ORDERED: cefTRIAXone 2 GM in Sodium Chloride 0.9% 50 ML IV ONE (20:27)
[2018-12-24] MEDS ORDERED: Furosemide 40 MG/4 ML VIAL IVPUSH ONE (20:28)
[2018-12-24] MEDS ORDERED: Ibuprofen 600 MG Tab PO PRN (22:29)
[2018-12-25] MEDS ORDERED: Sodium Chloride 0.9% 1,000 ML IV SCH (00:15)
[2018-12-25] MEDS: Albuterol 0.083% 2.5 MG/3 ML Neb Soln NEB PRN ×2 (04:34→17:13)
--- NOTE | 2018-12-25 06:43 | PCM.SN ---
- Free Text/Narrative Note: date 12/24/2018 time 19:34 call from 2 [facility]. Mr. Whitney is having fever, increases respirations. requesting evaluation S: Mr. Whitney reports chest hurts to breath from broken ribs. denies chest pain or worsen breathing. O: vital signs TPR 101.0-52-40 B/P 198/84 Mr. Whitney is sitting upright propped on pillows, appears to be in mild distress chest; lungs decreased breath sound in the bases, coarse breath sounds upper lobes bilateral. heart tone difficult to auscultate abdomen, non tender legs, no edema noted A: fever P: labs ordered, CBC, BMP, BCX2, Imaging: Chest xray decrease IV fluids to 75ml/hr meds IV Rocephin 2 gram now, IV Zithromax 500mg now, IV Lasix 40 mg now, increase oxygen to keep sats >92%, have Mr. Whitney use is IS more frequently. monitor closely. call for any changes.
[2018-12-25] MEDS: Ipratropium 0.02% 0.5 MG/2.5 ML Neb Soln INH SCH ×4 (07:08→21:13)
[2018-12-25] MEDS: PARoxetine 20 MG Tab PO SCH (09:54)
[2018-12-25] MEDS: amLODIPine 5 MG Tab PO SCH ×2 (09:54→21:14)
[2018-12-25] MEDS: Aspirin 81 MG Tab.EC PO SCH (09:54)
[2018-12-25] MEDS: Donepezil 10 MG Tab PO SCH (09:55)
[2018-12-25] MEDS: Oxybutynin 5 MG Tab PO SCH ×2 (09:55→21:15)
[2018-12-25] MEDS: Furosemide 40 MG Tab PO SCH (09:55)
[2018-12-25] MEDS: Lisinopril 20 MG Tab PO SCH (09:55)
[2018-12-25] MEDS: Simvastatin 20 MG Tab PO SCH (09:55)
--- NOTE | 2018-12-25 10:42 | CR ---
CHEST: Portable CLINICAL HISTORY:Leukocytosis COMPARISON:CT chest 12/23/2018 FINDINGS: Patient has a left pleural effusion which has increased since prior study. The there is left lower lobe airspace disease which is likely some compressive atelectasis. There are numerous left rib fractures which have been previously described. There are atherosclerotic changes in the aorta. Impression: Increasing left pleural effusion or hemothorax Infiltrate or compressive atelectasis in the left lower lobe Numerous left rib fractures previously described.
[2018-12-25] MEDS: oxyCODONE 5 MG Tab PO PRN ×2 (15:30→21:09)
--- NOTE | 2018-12-25 16:11 | PCM.PN ---
- General Info Date of Service: 12/25/18 Subjective Update: Mr. Whitney experienced increased respiratory compromise last night with shortness of breath and decreased oxygen saturations. He did improve with nebulizer therapy and increase in supplemental oxygen. Chest x-ray was obtained which showed evidence of possible left lung infiltrate as well as increased pleural effusion/hemothorax. INR is elevated today at 3.7. During the period of increased respiratory compromise he also developed significant temperature elevation, blood and sputum cultures have been obtained and he was started on IV antibiotic therapy with azithromycin and ceftriaxone. Functional Status: Reports: Tolerating Diet, Ambulating, Urinating - Review of Systems General: Reports: Fever, Weakness, Chills Pulmonary: Reports: Shortness of Breath, Cough. Denies: Pleuritic Chest Pain, Sputum, Hemoptysis, Wheezing Cardiovascular: Reports: Dyspnea on Exertion, Other (Chest wall pain related to rib fractures). Denies: Chest Pain, Palpitations, Orthopnea, PND, Edema Gastrointestinal: Reports: No Symptoms - Patient Data Vitals - Most Recent: Last Vital Signs Temp 100.9 F H 12/25/18 14:32 Pulse 80 12/25/18 14:32 Resp 16 12/25/18 14:32 BP 189/71 H 12/25/18 14:32 Pulse Ox 20 L 12/25/18 14:32 Weight - Most Recent: 223 lb I&O - Last 24 Hours: Intake & Output 12/25/18 12/25/18 12/25/18 06:59 14:59 22:59 Intake Total 1239 500 Output Total 300 400 Balance 939 100 Lab Results Last 24 Hours: Laboratory Results - last 24 hr 12/24/18 12/24/18 12/24/18 Range/Units 19:38 19:38 21:00 WBC 118.9 H* (4.5-11.0) K/uL RBC 3.24 L (4.30-5.90) M/uL Hgb 10.2 L (12.0-15.0) g/dL Hct 35.0 L (40.0-54.0) % MCV 108 H (80-98) fL MCH 32 H (27-31) pg MCHC 29 L (32-36) % Plt Count 241 (150-400) K/uL Add Manual Diff Yes Neutrophils % (Manual) 2 L (36-66) % Lymphocytes % (Manual) 96 H (24-44) % Monocytes % (Manual) 2 (2-6) % Polychromasia PT (9.5-12.0) sec INR (0.80-1.20) Sodium 145 (140-148) mmol/L Potassium 3.6 (3.6-5.2) mmol/L Chloride 109 H (100-108) mmol/L Carbon Dioxide 27 (21-32) mmol/L Anion Gap 12.6 (5.0-14.0) mmol/L BUN 28 H (7-18) mg/dL Creatinine 1.3 (0.8-1.3) mg/dL Est Cr Clr Drug Dosing 50.04 mL/min Estimated GFR (MDRD) 54 L (>60) Glucose 119 H (74-106) mg/dL Calcium 8.3 L (8.5-10.1) mg/dL Urine Color Yellow Urine Appearance Clear Urine pH 5.0 (4.5-8.0) Ur Specific [place] 1.015 (1.008-1.030) Urine Protein Negative (NEGATIVE) mg/dL Urine Glucose (UA) Normal (NEGATIVE) mg/dL Urine Ketones Negative (NEGATIVE) mg/dL Urine Occult Blood Trace (NEGATIVE) Urine Nitrite Negative (NEGAITVE) Urine Bilirubin Negative (NEGATIVE) Urine Urobilinogen 1 (NORMAL) mg/dL Ur Leukocyte Esterase Negative (NEGATIVE) Urine RBC 0-5 (0-5) Urine WBC Not seen (0-5) Ur Epithelial Cells Not seen Amorphous Sediment Not seen Urine Bacteria Not seen Urine Mucus Not seen 12/25/18 Range/Units 04:20 WBC (4.5-11.0) K/uL RBC (4.30-5.90) M/uL Hgb (12.0-15.0) g/dL Hct (40.0-54.0) % MCV (80-98) fL MCH (27-31) pg MCHC (32-36) % Plt Count (150-400) K/uL Add Manual Diff Neutrophils % (Manual) (36-66) % Lymphocytes % (Manual) (24-44) % Monocytes % (Manual) (2-6) % Polychromasia PT 38.2 H (9.5-12.0) sec INR 3.74 H (0.80-1.20) Sodium (140-148) mmol/L Potassium (3.6-5.2) mmol/L Chloride (100-108) mmol/L Carbon Dioxide (21-32) mmol/L Anion Gap (5.0-14.0) mmol/L BUN (7-18) mg/dL Creatinine (0.8-1.3) mg/dL Est Cr Clr Drug Dosing mL/min Estimated GFR (MDRD) (>60) Glucose (74-106) mg/dL Calcium (8.5-10.1) mg/dL Urine Color Urine Appearance Urine pH (4.5-8.0) Ur Specific [place] (1.008-1.030) Urine Protein (NEGATIVE) mg/dL Urine Glucose (UA) (NEGATIVE) mg/dL Urine Ketones (NEGATIVE) mg/dL Urine Occult Blood (NEGATIVE) Urine Nitrite (NEGAITVE) Urine Bilirubin (NEGATIVE) Urine Urobilinogen (NORMAL) mg/dL Ur Leukocyte Esterase (NEGATIVE) Urine RBC (0-5) Urine WBC (0-5) Ur Epithelial Cells Amorphous Sediment Urine Bacteria Urine Mucus Med Orders - Current: Current Medications Acetaminophen (Tylenol) 650 mg PO Q4H PRN PRN Reason: Pain (Mild 1-3)/fever Last Admin: 12/24/18 23:28 Dose: 650 mg Acetylcysteine (Mucomyst 20%) 200 mg NEB TIDRT [facility] Albuterol (Proventil Neb Soln) 2.5 mg NEB Q4H PRN PRN Reason: Shortness Of Breath/wheezing Last Admin: 12/25/18 04:34 Dose: 2.5 mg Amlodipine Besylate (Norvasc) 5 mg PO BID [facility] Last Admin: 12/25/18 09:54 Dose: 5 mg Aspirin (Halfprin) 81 mg PO DAILY [facility] Last Admin: 12/25/18 09:54 Dose: 81 mg Donepezil HCl (Aricept) 10 mg PO DAILY [facility] Last Admin: 12/25/18 09:55 Dose: 10 mg Furosemide (Lasix) 40 mg PO DAILY [facility] Last Admin: 12/25/18 09:55 Dose: 40 mg Hydromorphone HCl (Dilaudid) 0.5 mg IVPUSH Q2H PRN PRN Reason: Pain (severe 7-10) Phytonadione 5 mg/ Sodium (Chloride) 50.5 mls @ 100 mls/hr IV NOW ONE Stop: 12/25/18 16:45 Ibuprofen (Motrin) 600 mg PO Q6H PRN PRN Reason: Pain/Fever Last Admin: 12/24/18 22:38 Dose: 600 mg Ipratropium [place] (Atrovent) 0.5 mg INH QIDRT [facility] Last Admin: 12/25/18 14:31 Dose: 0.5 mg Lisinopril (Prinivil) 40 mg PO DAILY [facility] Last Admin: 12/25/18 09:55 Dose: 40 mg Ondansetron HCl (Zofran) 4 mg IV Q4H PRN PRN Reason: Nausea/Vomiting Oxybutynin Chloride (Oxybutynin) 5 mg PO BID [facility] Last Admin: 12/25/18 09:55 Dose: 5 mg Oxycodone HCl (Oxycodone) 5 mg PO Q4H PRN PRN Reason: Pain (moderate 4-6) Last Admin: 12/25/18 15:30 Dose: 5 mg Paroxetine HCl (Paxil) 20 mg PO DAILY [facility] Last Admin: 12/25/18 09:54 Dose: 20 mg Senna/Docusate Sodium (Senna Plus) 1 tab PO BID PRN PRN Reason: Constipation Simvastatin (Zocor) 40 mg PO DAILY [facility] Last Admin: 12/25/18 09:55 Dose: 40 mg Sodium Chloride (Saline Flush) 10 ml FLUSH ASDIRECTED PRN PRN Reason: Keep Vein Open Tamsulosin HCl (Flomax) 0.4 mg PO DAILY [facility] Last Admin: 12/24/18 09:35 Dose: Not Given Discontinued Medications Fentanyl (Sublimaze) 25 mcg IVPUSH ONETIME ONE Stop: 12/23/18 13:50 Last Admin: 12/23/18 14:06 Dose: 25 mcg Furosemide (Lasix) 40 mg IVPUSH ONETIME ONE Stop: 12/24/18 20:29 Last Admin: 12/24/18 20:39 Dose: 40 mg Sodium Chloride (Normal Saline) 1,000 mls @ 125 mls/hr IV ASDIRECTED [facility] Last Admin: 12/23/18 14:06 Dose: 125 mls/hr Sodium Chloride (Normal Saline) 1,000 mls @ 125 mls/hr IV ASDIRECTED [facility] Last Admin: 12/24/18 14:39 Dose: 125 mls/hr Azithromycin 500 mg/ Sodium (Chloride) 250 mls @ 250 mls/hr IV ONETIME ONE Stop: 12/24/18 20:38 Last Admin: 12/24/18 20:22 Dose: 250 mls/hr Ceftriaxone Sodium 2 gm/ (Sodium Chloride) 50 mls @ 100 mls/hr IV ONETIME ONE Stop: 12/24/18 20:56 Last Admin: 12/24/18 21:31 Dose: 100 mls/hr Sodium Chloride (Normal Saline) 1,000 mls @ 75 mls/hr IV ASDIRECTED [facility] Last Admin: 12/25/18 01:47 Dose: 75 mls/hr Phytonadione (Aquamephyton) 1 mg SUBCUT ONETIME ONE Stop: 12/24/18 09:01 Last Admin: 12/24/18 09:27 Dose: 1 mg Warfarin Sodium (Coumadin) 7.5 mg PO DAILY@1300 [facility] - Exam Quality Assessment: Supplemental Oxygen, DVT Prophylaxis General: Alert, Oriented, Cooperative, Mild Distress Lungs: Clear to Auscultation, Normal Respiratory Effort Cardiovascular: Regular Rate, Regular Rhythm, No Murmurs GI/Abdominal Exam: Soft, Non-Tender, No Organomegaly, No Distention Extremities: Non-Tender, No Pedal Edema - Problem List Review Problem List Initiated/Reviewed/Updated: Yes - My Orders Last 24 Hours: My Active Orders 12/25/18 15:42 Consult to Physician [CONS] Routine US Guidance Thoracentesis NC [US] Routine Phytonadione [AquaMephyton] 5 mg Sodium Chloride 0.9% [Normal Saline] 50 ml IV NOW 12/25/18 15:45 Convert IV to Saline Lock [OM.PC] Routine 12/25/18 15:46 RT Aerosol Therapy [RC] ASDIRECTED 12/25/18 21:00 Acetylcysteine [Mucomyst 20%] 200 mg NEB TIDRT 12/26/18 05:00 BASIC METABOLIC PANEL,BMP [CHEM] Timed CBC WITH AUTO DIFF [HEME] Timed INR,PT,PROTHROMBIN TIME [COAG] Timed MAGNESIUM [CHEM] Timed 12/26/18 08:00 Notify Provider Consults [RC] ASDIRECTED - Plan Plan:: ASSESSMENT AND PLAN MULTIPLE LEFT-SIDED RIB FRACTURES-secondary to a fall approximately one week ago. He lives by himself and is been unable to safely function at home or take care of himself because of difficulty with transfers and even ambulation. Rest x -ray obtained last night shows evidence of increased pleural effusion/ hemothorax. -Ultrasound in a.m. to localize effusion for thoracentesis -Consult Dr. Gaines in a.m. for thoracentesis -Hold warfarin -Vitamin K 5 milligrams IV now -Recheck INR in a.m. -Saline lock IV -Pain medication as needed -Physical therapy -Short-term usp placement LEFT LUNG INFILTRATE-associated with fever, likely pneumonia secondary to rib fractures and hypoventilation -Blood and sputum cultures pending -Continue IV azithromycin and Rocephin pending culture results DEHYDRATION-resolved following hydration ACUTE ON CHRONIC RENAL INSUFFICIENCY-improved with hydration COPD-no evidence of acute exacerbation -Continue usual outpatient medications -Nebulized albuterol every 4 hours as needed CHRONIC LYMPHOCYTIC LEUKEMIA-known diagnosis, currently untreated. Leukocytosis significantly increased from previous levels. -Outpatient oncology consult MAINTENANCE ISSUES -DVT prophylaxis; SCUDs, hold on anticoagulation because of possible hemothorax -GI prophylaxis; not indicated -Godwin catheter; not indicated -Nutrition; regular diet -Nicotine dependence;Not required CODE STATUS-FULL CODE ADMISSION STATUS-patient will be admitted to inpatient status, expect at least a 2 night hospital stay for evaluation and management of problems as outlined above. At the time of this admission I do not reasonably expected evaluation and management of this problem will require more than a 96 hour hospital stay. DISPOSITION-anticipate discharge to home after the hospital stay. PRIMARY CARE PROVIDER-Dr. Johnson
[2018-12-25] MEDS ORDERED: Phytonadione 5 MG in Sodium Chloride 0.9% 50 ML IV ONE (16:15)
[2018-12-25] MEDS: Acetylcysteine 20% 200 MG/ML 4 ML Nebulizer Soln SDV NEB SCH (21:24)
[2018-12-26] MEDS: Acetylcysteine 20% 200 MG/ML 4 ML Nebulizer Soln SDV NEB SCH ×3 (07:46→21:34)
[2018-12-26] MEDS: Ipratropium 0.02% 0.5 MG/2.5 ML Neb Soln INH SCH ×4 (07:46→21:32)
[2018-12-26] MEDS ORDERED: Magnesium Sulfate/Water 2 GM in Premix Bag 1 BAG IV ONE (09:00)
[2018-12-26] MEDS: Donepezil 10 MG Tab PO SCH (09:07)
[2018-12-26] MEDS: Furosemide 40 MG Tab PO SCH (09:07)
[2018-12-26] MEDS: Aspirin 81 MG Tab.EC PO SCH (09:07)
[2018-12-26] MEDS: amLODIPine 5 MG Tab PO SCH ×2 (09:08→21:34)
[2018-12-26] MEDS: Magnesium Oxide 400 MG Tab PO SCH ×2 (09:08→21:34)
[2018-12-26] MEDS: Oxybutynin 5 MG Tab PO SCH ×2 (09:10→21:34)
[2018-12-26] MEDS: PARoxetine 20 MG Tab PO SCH (09:10)
[2018-12-26] MEDS: Lisinopril 20 MG Tab PO SCH (09:11)
[2018-12-26] MEDS: Simvastatin 20 MG Tab PO SCH (09:11)
[2018-12-26] MEDS: oxyCODONE 5 MG Tab PO PRN ×2 (09:11→21:32)
--- NOTE | 2018-12-26 11:20 | PCM.PN ---
- General Info Date of Service: 12/26/18 Subjective Update: Mr. Whitney is feeling significantly improved following thoracentesis earlier this morning by Dr. Gaines. He notes less shortness of breath and oxygenation has improved as well. No significant temperature elevation since last night, vital signs otherwise stable. Functional Status: Reports: Tolerating Diet, Urinating - Review of Systems General: Reports: Weakness. Denies: Fever, Chills Pulmonary: Reports: Shortness of Breath. Denies: Pleuritic Chest Pain, Cough, Sputum, Hemoptysis, Wheezing Cardiovascular: Reports: Dyspnea on Exertion. Denies: Chest Pain, Palpitations , Orthopnea, PND, Edema, Lightheadedness Gastrointestinal: Reports: No Symptoms - Patient Data Vitals - Most Recent: Last Vital Signs Temp 99.1 F 12/26/18 10:51 Pulse 89 12/26/18 11:08 Resp 22 H 12/26/18 10:51 BP 108/53 L 12/26/18 10:51 Pulse Ox 93 L 12/26/18 11:08 Weight - Most Recent: 223 lb I&O - Last 24 Hours: Intake & Output 12/25/18 12/26/18 12/26/18 22:59 06:59 14:59 Intake Total 50 900 260 Output Total 500 500 150 Balance -450 400 110 Lab Results Last 24 Hours: Laboratory Results - last 24 hr 12/26/18 12/26/18 12/26/18 Range/Units 05:55 05:55 05:55 WBC 109.0 H* (4.5-11.0) K/uL RBC 2.82 L (4.30-5.90) M/uL Hgb 9.2 L (12.0-15.0) g/dL Hct 30.1 L (40.0-54.0) % MCV 107 H (80-98) fL MCH 33 H (27-31) pg MCHC 30 L (32-36) % Plt Count 221 (150-400) K/uL Add Manual Diff Yes Neutrophils % (Manual) 3 L (36-66) % Lymphocytes % (Manual) 97 H (24-44) % PT 14.5 H (9.5-12.0) sec INR 1.34 H D (0.80-1.20) Sodium 145 (140-148) mmol/L Potassium 3.6 (3.6-5.2) mmol/L Chloride 110 H (100-108) mmol/L Carbon Dioxide 27 (21-32) mmol/L Anion Gap 11.6 (5.0-14.0) mmol/L BUN 20 H (7-18) mg/dL Creatinine 1.0 (0.8-1.3) mg/dL Est Cr Clr Drug Dosing 65.05 mL/min Estimated GFR (MDRD) > 60 (>60) Glucose 107 H (74-106) mg/dL Calcium 8.8 (8.5-10.1) mg/dL Magnesium 1.7 L (1.8-2.4) mg/dL Suk[facility] Results Last 24 Hours: Microbiology 12/26/18 09:59 Gram Stain - Final Thoracentesis Fluid 12/24/18 19:38 Aerobic Blood Culture - Preliminary Blood - Venous NO GROWTH AFTER 1 DAY Anaerobic Blood Culture - Preliminary NO GROWTH AFTER 1 DAY 12/24/18 19:38 Aerobic Blood Culture - Preliminary Blood - Venous - Lab Draw NO GROWTH AFTER 1 DAY Anaerobic Blood Culture - Preliminary NO GROWTH AFTER 1 DAY Med Orders - Current: Current Medications Acetaminophen (Tylenol) 650 mg PO Q4H PRN PRN Reason: Pain (Mild 1-3)/fever Last Admin: 12/24/18 23:28 Dose: 650 mg Acetylcysteine (Mucomyst 20%) 200 mg NEB TIDRT [facility] Last Admin: 12/26/18 07:46 Dose: 200 mg Albuterol (Proventil Neb Soln) 2.5 mg NEB Q4H PRN PRN Reason: Shortness Of Breath/wheezing Last Admin: 12/25/18 17:13 Dose: 2.5 mg Amlodipine Besylate (Norvasc) 5 mg PO BID [facility] Last Admin: 12/26/18 09:08 Dose: 5 mg Aspirin (Halfprin) 81 mg PO DAILY [facility] Last Admin: 12/26/18 09:07 Dose: 81 mg Donepezil HCl (Aricept) 10 mg PO DAILY [facility] Last Admin: 12/26/18 09:07 Dose: 10 mg Furosemide (Lasix) 40 mg PO DAILY [facility] Last Admin: 12/26/18 09:07 Dose: 40 mg Hydromorphone HCl (Dilaudid) 0.5 mg IVPUSH Q2H PRN PRN Reason: Pain (severe 7-10) Ibuprofen (Motrin) 600 mg PO Q6H PRN PRN Reason: Pain/Fever Last Admin: 12/24/18 22:38 Dose: 600 mg Ipratropium [place] (Atrovent) 0.5 mg INH QIDRT [facility] Last Admin: 12/26/18 11:08 Dose: 0.5 mg Lisinopril (Prinivil) 40 mg PO DAILY [facility] Last Admin: 12/26/18 09:11 Dose: 40 mg Magnesium Oxide (Magnesium Oxide) 400 mg PO BID [facility] Last Admin: 12/26/18 09:08 Dose: 400 mg Ondansetron HCl (Zofran) 4 mg IV Q4H PRN PRN Reason: Nausea/Vomiting Oxybutynin Chloride (Oxybutynin) 5 mg PO BID [facility] Last Admin: 12/26/18 09:10 Dose: 5 mg Oxycodone HCl (Oxycodone) 5 mg PO Q4H PRN PRN Reason: Pain (moderate 4-6) Last Admin: 12/26/18 09:11 Dose: 5 mg Paroxetine HCl (Paxil) 20 mg PO DAILY [facility] Last Admin: 12/26/18 09:10 Dose: 20 mg Senna/Docusate Sodium (Senna Plus) 1 tab PO BID PRN PRN Reason: Constipation Simvastatin (Zocor) 40 mg PO DAILY [facility] Last Admin: 12/26/18 09:11 Dose: 40 mg Sodium Chloride (Saline Flush) 10 ml FLUSH ASDIRECTED PRN PRN Reason: Keep Vein Open Tamsulosin HCl (Flomax) 0.4 mg PO DAILY [facility] Last Admin: 12/24/18 09:35 Dose: Not Given Discontinued Medications Fentanyl (Sublimaze) 25 mcg IVPUSH ONETIME ONE Stop: 12/23/18 13:50 Last Admin: 12/23/18 14:06 Dose: 25 mcg Furosemide (Lasix) 40 mg IVPUSH ONETIME ONE Stop: 12/24/18 20:29 Last Admin: 12/24/18 20:39 Dose: 40 mg Sodium Chloride (Normal Saline) 1,000 mls @ 125 mls/hr IV ASDIRECTED [facility] Last Admin: 12/23/18 14:06 Dose: 125 mls/hr Sodium Chloride (Normal Saline) 1,000 mls @ 125 mls/hr IV ASDIRECTED [facility] Last Admin: 12/24/18 14:39 Dose: 125 mls/hr Azithromycin 500 mg/ Sodium (Chloride) 250 mls @ 250 mls/hr IV ONETIME ONE Stop: 12/24/18 20:38 Last Admin: 12/24/18 20:22 Dose: 250 mls/hr Ceftriaxone Sodium 2 gm/ (Sodium Chloride) 50 mls @ 100 mls/hr IV ONETIME ONE Stop: 12/24/18 20:56 Last Admin: 12/24/18 21:31 Dose: 100 mls/hr Sodium Chloride (Normal Saline) 1,000 mls @ 75 mls/hr IV ASDIRECTED [facility] Last Admin: 12/25/18 01:47 Dose: 75 mls/hr Phytonadione 5 mg/ Sodium (Chloride) 50.5 mls @ 100 mls/hr IV NOW ONE Stop: 12/25/18 16:45 Last Admin: 12/25/18 16:15 Dose: 100 mls/hr Magnesium Sulfate 2 gm/ Premix 50 mls @ 25 mls/hr IV ONETIME ONE Stop: 12/26/18 10:59 Last Admin: 12/26/18 09:54 Dose: 25 mls/hr Phytonadione (Aquamephyton) 1 mg SUBCUT ONETIME ONE Stop: 12/24/18 09:01 Last Admin: 12/24/18 09:27 Dose: 1 mg Warfarin Sodium (Coumadin) 7.5 mg PO DAILY@1300 [facility] - Exam Quality Assessment: Supplemental Oxygen, DVT Prophylaxis General: Alert, Oriented, Cooperative, Mild Distress Lungs: Decreased Breath Sounds. No: Rales, Rhonchi, Rub, Wheezing Cardiovascular: Regular Rate, No Murmurs, Irregular Rhythm GI/Abdominal Exam: Soft, Non-Tender, No Organomegaly, No Distention Extremities: Non-Tender, No Pedal Edema - Problem List Review Problem List Initiated/Reviewed/Updated: Yes - My Orders Last 24 Hours: My Active Orders 12/25/18 15:42 Consult to Physician [CONS] Routine 12/25/18 15:45 Convert IV to Saline Lock [OM.PC] Routine 12/25/18 15:46 RT Aerosol Therapy [RC] ASDIRECTED 12/25/18 16:11 Antiembolic Devices [RC] .Routine Sequential Compression Device [OM.PC] Routine 12/25/18 21:00 Acetylcysteine [Mucomyst 20%] 200 mg NEB TIDRT 12/26/18 08:00 Notify Provider Consults [RC] ASDIRECTED 12/26/18 08:30 US Guidance Thoracentesis NC [US] Routine 12/26/18 09:00 Magnesium Oxide 400 mg PO BID 12/27/18 05:00 Chest 1V Frontal [CR] Timed BASIC METABOLIC PANEL,BMP [CHEM] Timed CBC WITH AUTO DIFF [HEME] Timed INR,PT,PROTHROMBIN TIME [COAG] Timed MAGNESIUM [CHEM] Timed - Plan Plan:: ASSESSMENT AND PLAN MULTIPLE LEFT-SIDED RIB FRACTURES-secondary to a fall approximately one week ago. He lives by himself and is been unable to safely function at home or take care of himself because of difficulty with transfers and even ambulation. Thoracentesis performed this morning by Dr. Gaines with good result and improvement in shortness of breath -Surgical follow-up per Dr. Gaines -Hold warfarin -Recheck INR in a.m. -Saline lock IV -Pain medication as needed -Physical therapy -Short-term retirement placement LEFT LUNG INFILTRATE-associated with fever, likely pneumonia secondary to rib fractures and hypoventilation -Blood and sputum cultures pending -Continue IV azithromycin and Rocephin pending culture results DEHYDRATION-resolved following hydration ACUTE ON CHRONIC RENAL INSUFFICIENCY-improved with hydration COPD-no evidence of acute exacerbation -Continue usual outpatient medications -Nebulized albuterol every 4 hours as needed CHRONIC LYMPHOCYTIC LEUKEMIA-known diagnosis, currently untreated. Leukocytosis significantly increased from previous levels. -Outpatient oncology consult MAINTENANCE ISSUES -DVT prophylaxis; SCUDs, hold on anticoagulation because of possible hemothorax -GI prophylaxis; not indicated -Godwin catheter; not indicated -Nutrition; regular diet -Nicotine dependence;Not required CODE STATUS-FULL CODE ADMISSION STATUS-patient will be admitted to inpatient status, expect at least a 2 night hospital stay for evaluation and management of problems as outlined above. At the time of this admission I do not reasonably expected evaluation and management of this problem will require more than a 96 hour hospital stay. DISPOSITION-anticipate discharge to home after the hospital stay. PRIMARY CARE PROVIDER-Dr. Johnson
[2018-12-26] MEDS: Albuterol 0.083% 2.5 MG/3 ML Neb Soln NEB PRN (13:22)
[2018-12-27] MEDS: Acetylcysteine 20% 200 MG/ML 4 ML Nebulizer Soln SDV NEB SCH ×3 (07:20→20:45)
[2018-12-27] MEDS: Ipratropium 0.02% 0.5 MG/2.5 ML Neb Soln INH SCH ×2 (07:20→10:30)
[2018-12-27] MEDS: Donepezil 10 MG Tab PO SCH (08:41)
[2018-12-27] MEDS: Furosemide 40 MG Tab PO SCH (08:42)
[2018-12-27] MEDS: Magnesium Oxide 400 MG Tab PO SCH ×2 (08:42→20:46)
[2018-12-27] MEDS: Aspirin 81 MG Tab.EC PO SCH (08:42)
[2018-12-27] MEDS: Oxybutynin 5 MG Tab PO SCH ×2 (08:43→20:47)
[2018-12-27] MEDS: amLODIPine 5 MG Tab PO SCH ×2 (08:43→20:46)
[2018-12-27] MEDS: Simvastatin 20 MG Tab PO SCH (08:44)
[2018-12-27] MEDS: PARoxetine 20 MG Tab PO SCH (08:44)
[2018-12-27] MEDS: Lisinopril 20 MG Tab PO SCH (08:44)
[2018-12-27] MEDS ORDERED: Potassium Chloride 20 MEQ Tab.ER PO ONE ×2 (09:00→13:00)
[2018-12-27] MEDS ORDERED: Sodium Phosphate,Monobasic/Sodium Phosphate,Dibasic Enema 133 ML Bottle RECTAL PRN (11:25)
--- NOTE | 2018-12-27 11:31 | PCM.PN ---
- General Info Date of Service: 12/27/18 Subjective Update: Mr. Whitney has been stable over the last 24 hours, no recurrent temperature elevation. Respiratory status is improved following thoracentesis performed yesterday morning, with much less shortness of breath. Continues to experience chest wall pain related to his multiple rib fractures on the left. Chest x-ray obtained this morning shows good resolution of the pleural effusion with no significant recurrence. Functional Status: Reports: Tolerating Diet, Urinating - Review of Systems General: Denies: Fever, Chills Pulmonary: Reports: No Symptoms Cardiovascular: Reports: Other (Chest wall pain). Denies: Dyspnea on Exertion, Orthopnea, PND, Edema, Lightheadedness Gastrointestinal: Reports: No Symptoms - Patient Data Vitals - Most Recent: Last Vital Signs Temp 97.8 F 12/27/18 08:05 Pulse 81 12/27/18 08:05 Resp 32 H 12/27/18 08:05 BP 150/73 H 12/27/18 08:44 Pulse Ox 94 L 12/27/18 08:05 Weight - Most Recent: 221 lb I&O - Last 24 Hours: Intake & Output 12/26/18 12/27/18 12/27/18 22:59 06:59 14:59 Intake Total 500 236 Output Total 250 Balance 250 236 Lab Results Last 24 Hours: Laboratory Results - last 24 hr 12/27/18 12/27/18 12/27/18 Range/Units 04:00 04:00 04:00 WBC 103.3 H* (4.5-11.0) K/uL RBC 2.73 L (4.30-5.90) M/uL Hgb 8.8 L (12.0-15.0) g/dL Hct 29.0 L (40.0-54.0) % MCV 106 H (80-98) fL MCH 32 H (27-31) pg MCHC 30 L (32-36) % Plt Count 228 (150-400) K/uL Add Manual Diff Yes Neutrophils % (Manual) 4 L (36-66) % Lymphocytes % (Manual) 96 H (24-44) % PT 12.0 (9.5-12.0) sec INR 1.10 (0.80-1.20) Sodium 145 (140-148) mmol/L Potassium 3.2 L (3.6-5.2) mmol/L Chloride 108 (100-108) mmol/L Carbon Dioxide 29 (21-32) mmol/L Anion Gap 11.2 (5.0-14.0) mmol/L BUN 24 H (7-18) mg/dL Creatinine 1.1 (0.8-1.3) mg/dL Est Cr Clr Drug Dosing 59.13 mL/min Estimated GFR (MDRD) > 60 (>60) Glucose 112 H (74-106) mg/dL Calcium 8.7 (8.5-10.1) mg/dL Magnesium 1.9 (1.8-2.4) mg/dL [facility] Results Last 24 Hours: Microbiology 12/26/18 09:59 Gram Stain - Final Thoracentesis Fluid Body Fluid Culture - Preliminary NO GROWTH AFTER 1 DAY 12/24/18 19:38 Aerobic Blood Culture - Preliminary Blood - Venous - Lab Draw NO GROWTH AFTER 2 DAYS Anaerobic Blood Culture - Preliminary NO GROWTH AFTER 2 DAYS 12/24/18 19:38 Aerobic Blood Culture - Preliminary Blood - Venous NO GROWTH AFTER 2 DAYS Anaerobic Blood Culture - Preliminary NO GROWTH AFTER 2 DAYS Med Orders - Current: Current Medications Acetaminophen (Tylenol) 650 mg PO Q4H PRN PRN Reason: Pain (Mild 1-3)/fever Last Admin: 12/24/18 23:28 Dose: 650 mg Acetylcysteine (Mucomyst 20%) 200 mg NEB TIDRT [facility] Last Admin: 12/27/18 07:20 Dose: 200 mg Albuterol (Proventil Neb Soln) 2.5 mg NEB Q4H PRN PRN Reason: Shortness Of Breath/wheezing Last Admin: 12/26/18 13:22 Dose: 2.5 mg Amlodipine Besylate (Norvasc) 5 mg PO BID [facility] Last Admin: 12/27/18 08:43 Dose: 5 mg Aspirin (Halfprin) 81 mg PO DAILY [facility] Last Admin: 12/27/18 08:42 Dose: 81 mg Bisacodyl (Dulcolax) 10 mg RECTAL ONETIME ONE Stop: 12/27/18 11:26 Donepezil HCl (Aricept) 10 mg PO DAILY [facility] Last Admin: 12/27/18 08:41 Dose: 10 mg Furosemide (Lasix) 40 mg PO DAILY [facility] Last Admin: 12/27/18 08:42 Dose: 40 mg Hydromorphone HCl (Dilaudid) 0.5 mg IVPUSH Q2H PRN PRN Reason: Pain (severe 7-10) Ibuprofen (Motrin) 600 mg PO Q6H PRN PRN Reason: Pain/Fever Last Admin: 12/24/18 22:38 Dose: 600 mg Lisinopril (Prinivil) 40 mg PO DAILY [facility] Last Admin: 12/27/18 08:44 Dose: 40 mg Magnesium Oxide (Magnesium Oxide) 400 mg PO BID [facility] Last Admin: 12/27/18 08:42 Dose: 400 mg Ondansetron HCl (Zofran) 4 mg IV Q4H PRN PRN Reason: Nausea/Vomiting Oxybutynin Chloride (Oxybutynin) 5 mg PO BID [facility] Last Admin: 12/27/18 08:43 Dose: 5 mg Oxycodone HCl (Oxycodone) 5 mg PO Q4H PRN PRN Reason: Pain (moderate 4-6) Last Admin: 12/26/18 21:32 Dose: 5 mg Paroxetine HCl (Paxil) 20 mg PO DAILY [facility] Last Admin: 12/27/18 08:44 Dose: 20 mg Potassium Chloride (Klor-Con M20) 40 meq PO ONETIME ONE Stop: 12/27/18 13:01 Senna/Docusate Sodium (Senna Plus) 1 tab PO BID PRN PRN Reason: Constipation Simvastatin (Zocor) 40 mg PO DAILY [facility] Last Admin: 12/27/18 08:44 Dose: 40 mg Sodium Biphosphate/Sodium Phosphate (Fleet Enema) 133 ml RECTAL ONETIME PRN PRN Reason: Constipation Sodium Chloride (Saline Flush) 10 ml FLUSH ASDIRECTED PRN PRN Reason: Keep Vein Open Tamsulosin HCl (Flomax) 0.4 mg PO DAILY [facility] Last Admin: 12/24/18 09:35 Dose: Not Given Discontinued Medications Fentanyl (Sublimaze) 25 mcg IVPUSH ONETIME ONE Stop: 12/23/18 13:50 Last Admin: 12/23/18 14:06 Dose: 25 mcg Furosemide (Lasix) 40 mg IVPUSH ONETIME ONE Stop: 12/24/18 20:29 Last Admin: 12/24/18 20:39 Dose: 40 mg Sodium Chloride (Normal Saline) 1,000 mls @ 125 mls/hr IV ASDIRECTED [facility] Last Admin: 12/23/18 14:06 Dose: 125 mls/hr Sodium Chloride (Normal Saline) 1,000 mls @ 125 mls/hr IV ASDIRECTED [facility] Last Admin: 12/24/18 14:39 Dose: 125 mls/hr Azithromycin 500 mg/ Sodium (Chloride) 250 mls @ 250 mls/hr IV ONETIME ONE Stop: 12/24/18 20:38 Last Admin: 12/24/18 20:22 Dose: 250 mls/hr Ceftriaxone Sodium 2 gm/ (Sodium Chloride) 50 mls @ 100 mls/hr IV ONETIME ONE Stop: 12/24/18 20:56 Last Admin: 12/24/18 21:31 Dose: 100 mls/hr Sodium Chloride (Normal Saline) 1,000 mls @ [facility] Admin: 12/25/18 01:47 Dose: 75 mls/hr Phytonadione 5 mg/ Sodium (Chloride) 50.5 mls @ 100 mls/hr IV NOW ONE Stop: 12/25/18 16:45 Last Admin: 12/25/18 16:15 Dose: 100 mls/hr Magnesium Sulfate 2 gm/ Premix 50 mls @ 25 mls/hr IV ONETIME ONE Stop: 12/26/18 10:59 Last Admin: 12/26/18 09:54 Dose: 25 mls/hr Ipratropium [place] (Atrovent) 0.5 mg INH QIDRT [facility] Last Admin: 12/27/18 10:30 Dose: 0.5 mg Phytonadione (Aquamephyton) 1 mg SUBCUT ONETIME ONE Stop: 12/24/18 09:01 Last Admin: 12/24/18 09:27 Dose: 1 mg Potassium Chloride (Klor-Con M20) 40 meq PO ONETIME ONE Stop: 12/27/18 09:01 Last Admin: 12/27/18 08:42 Dose: 40 meq Warfarin Sodium (Coumadin) 7.5 mg PO DAILY@1300 [facility] - Exam General: Alert, Oriented, Cooperative, Mild Distress Lungs: Clear to Auscultation, Normal Respiratory Effort Cardiovascular: Regular Rate, Regular Rhythm, No Murmurs GI/Abdominal Exam: Soft, Non-Tender, No Organomegaly, No Distention Extremities: Non-Tender, No Pedal Edema - Problem List Review Problem List Initiated/Reviewed/Updated: Yes - My Orders Last 24 Hours: My Active Orders 12/27/18 05:00 Chest 1V Frontal [CR] Timed 12/27/18 11:24 POTASSIUM,K [CHEM] Timed 12/27/18 11:25 Bisacodyl [Dulcolax] 10 mg RECTAL ONETIME ONE Na Phos,M-B/Na Phos,DI-B [Fleet Enema] 133 ml RECTAL ONETIME PRN 12/27/18 13:00 Potassium Chloride [Klor-Con M20] 40 meq PO ONETIME ONE - Plan Plan:: ASSESSMENT AND PLAN MULTIPLE LEFT-SIDED RIB FRACTURES-secondary to a fall approximately one week ago. He lives by himself and is been unable to safely function at home or take care of himself because of difficulty with transfers and even ambulation. Excellent improvement in shortness of breath following thoracentesis yesterday morning. Follow-up chest x-ray shows no significant were recurrence of the pleural effusion. -Surgical follow-up per Dr. Gaines -Hold warfarin -Recheck INR in a.m. -Saline lock IV -Pain medication as needed -Physical therapy -Short-term prison placement FEVER-no recurrence of fever over the last 48 hours, antibiotics have been discontinued. After elevation likely secondary to atelectasis related to his pleural effusion. DEHYDRATION-resolved following hydration ACUTE ON CHRONIC RENAL INSUFFICIENCY-improved with hydration COPD-no evidence of acute exacerbation -Continue usual outpatient medications -Nebulized albuterol every 4 hours as needed CHRONIC LYMPHOCYTIC LEUKEMIA-known diagnosis, currently untreated. Leukocytosis significantly increased from previous levels. -Outpatient oncology consult MAINTENANCE ISSUES -DVT prophylaxis; SCUDs, hold on anticoagulation because of possible hemothorax -GI prophylaxis; not indicated -Godwin catheter; not indicated -Nutrition; regular diet -Nicotine dependence;Not required CODE STATUS-FULL CODE ADMISSION STATUS-patient will be admitted to inpatient status, expect at least a 2 night hospital stay for evaluation and management of problems as outlined above. At the time of this admission I do not reasonably expected evaluation and management of this problem will require more than a 96 hour hospital stay. DISPOSITION-anticipate discharge to home after the hospital stay. PRIMARY CARE PROVIDER-Dr. Johnson
[2018-12-27] MEDS ORDERED: Bisacodyl 10 MG Supp RECTAL ONE (12:00)
[2018-12-27] MEDS: Albuterol 0.083% 2.5 MG/3 ML Neb Soln NEB PRN (13:01)
[2018-12-27] MEDS: Acetaminophen 325 MG Tab PO PRN (13:28)
[2018-12-28] MEDS: Acetylcysteine 20% 200 MG/ML 4 ML Nebulizer Soln SDV NEB SCH (07:27)
[2018-12-28] MEDS: Albuterol 0.083% 2.5 MG/3 ML Neb Soln NEB PRN (07:27)
[2018-12-28 08:00] VITALS: BP 130/59
[2018-12-28] MEDS: amLODIPine 5 MG Tab PO SCH (08:38)
[2018-12-28] MEDS: Lisinopril 20 MG Tab PO SCH (08:39)
[2018-12-28] MEDS: Furosemide 40 MG Tab PO SCH (08:39)
[2018-12-28] MEDS: Donepezil 10 MG Tab PO SCH (08:40)
[2018-12-28] MEDS: Oxybutynin 5 MG Tab PO SCH (08:40)
[2018-12-28] MEDS: PARoxetine 20 MG Tab PO SCH (08:40)
[2018-12-28] MEDS: Aspirin 81 MG Tab.EC PO SCH (08:40)
[2018-12-28] MEDS: Simvastatin 20 MG Tab PO SCH (08:40)
[2018-12-28] MEDS: Magnesium Oxide 400 MG Tab PO SCH (08:40)
--- NOTE | 2018-12-28 10:41 | PCM.DCSUM1 ---
Discharge Summary - Hospital Course Brief History: 78 -year-old male with history of stage III chronic kidney disease, hypertensive heart disease and CLL who presented with weakness and left -sided chest pain. He was admitted for pain control after multiple left-sided rib fractures were noted. Diagnosis: Stroke: No - Discharge Data Discharge Date: 12/28/18 Discharge Disposition: DC/Tfer to [facility] 03 Condition: Good - Discharge Diagnosis/Problem(s) (1) Multiple fractures of ribs of left side SNOMED Code(s): 7717237 ICD Code: S22.42XA - MULTIPLE FRACTURES OF RIBS, LEFT SIDE, INIT FOR CLOS FX Status: Acute Current Visit: Yes Qualifiers: Encounter type: initial encounter Fracture type: closed Qualified Code(s) : S22.42XA - Multiple fractures of ribs, left side, initial encounter for closed fracture (2) Hemothorax on left SNOMED Code(s): 11834614 ICD Code: J94.2 - HEMOTHORAX Status: Acute Current Visit: Yes (3) Chronic lymphocytic leukemia SNOMED Code(s): 31260040 ICD Code: C91.90 - LYMPHOID LEUKEMIA, UNSPECIFIED NOT HAVING ACHIEVED REMISSION Status: Chronic Current Visit: Yes - Patient Summary/Data Consults: Consultations 12/23/18 16:04 PT Evaluation and Treatment [CONS] Routine Please Evaluate and Treat. PT Reason for Consult: Multiple rib fractures This query below is only for informational purposes and is not editable. 12/25/18 15:42 Consult to Physician [CONS] Routine Consulting Provider: Deric Gaines Call Completed to Consulting Physician: Yes Reason for Consult: Left pleural effusion/hemothorax, thoracentesis in a.m. Hospital Course: Mitch presented to the emergency room with progressive weakness and left-sided chest pain about one week after a fall. Workup in the emergency room revealed 5 left-sided rib fractures and a very small left-sided pneumothorax. He was too weak to be safe for outpatient management and required hospital admission for pain control and physical therapy. At the time of presentation his INR was noted to be 5 and warfarin was held.by the day after admission his shortness of breath had improved some. He was requiring supplemental oxygen but in general was feeling better. He remains very weak. INR was down to 3.7 the day after admission. The original plan with pain control was continued but unfortunately overnight the second night of admission the patient developed fever and increasing shortness of breath. He was empirically started on antibiotics to cover respiratory pathogens. Chest x-ray showed increasing left-sided pleural effusion and possible infiltrate. Over the next 24 hours he remained relatively stable and did not have further fevers. He remained more short of breath than he had been during the first 2 days of hospitalization. He was on 3 L of supplemental oxygen. On the morning of 26 December he had a thoracentesis on the left side of his chest. About 700 mL of bloody fluid was removed. Chest x-ray after the procedure did not show concern for infiltrate and atelectasis was suspected to be the cause for the fever. Antibiotics were discontinued at this point. Respiratory status did improve after the thoracentesis. He has remained on 3 L of oxygen but has had less shortness of breath since the procedure. The culture from the thoracentesis fluid has not grown out a specific bacteria. He has had good pain control utilizing acetaminophen and oxycodone. He has not had any more fevers other than the one overnight from December 24 to . he is moving better but would benefit from subacute rehabilitation before going home. Pain control has been steadily improving. Appetite has been good. We have left his warfarin on hold for the time being. I would recommend that we wait a week or so to restart his warfarin to rule out the hemothorax more time to improve and the rib fractures more time to heal. Also encountered during the hospital stay were CLL with a white blood cell count of around 100,000. This is a higher level than had been previously noted during routine checkups. He should follow-up with his oncologist through [place] after custodial discharge. He does not have significant symptoms to raise concern for urgent referral at this time. He was also noted to have dehydration at the time of presentation with a decrease in his GFR from baseline. Kidney function has slowly improved throughout the hospital stay and he's back to his baseline a very mild stage III chronic kidney disease. - Patient Instructions Diet: Heart Healthy Diet Activity: As Tolerated Driving: Do Not Drive (if taking pain pills) Showering/Bathing: May Shower Notify Provider of: Fever, Increased Pain, Nausea and/or Vomiting Other/Special Instructions: 1. You were in the hospital for pain control and physical therapy after a fall resulted in multiple left-sided rib fractures. The rib fractures led to a hemothorax (blood inside the chest cavity) which did require surgical evacuation. Your blood counts and respiratory status have been stable since the thoracentesis. I recommend custodial admission for physical therapy and additional management prior to going home. I recommend scheduled acetaminophen 1000 mg 3 times a day for scheduled pain control and oxycodone as needed for breakthrough pain. 2. Code status - FULL CODE. 3. Referral to physical and occupational therapy for strengthening while at the custodial. 4. Seek medical attention if you have fever greater than 101, severe pain in your chest or severe shortness of breath. - Discharge Plan *PRESCRIPTION DRUG MONITORING PROGRAM REVIEWED*: Not Applicable *COPY OF PRESCRIPTION DRUG MONITORING REPORT IN PATIENT TANGELA: Not Applicable Prescriptions/Med Rec: Acetaminophen [Tylenol Extra Strength] 1,000 mg PO TID #200 tablet oxyCODONE 5 mg PO Q4H PRN #40 tablet PRN Reason: Pain (Moderate 4-6) Home Medications: Home Meds Donepezil HCl 1 tab PO DAILY 11/05/13 [History] Furosemide 40 mg PO DAILY 11/05/13 [History] Lisinopril 40 mg PO DAILY 11/05/13 [History] PARoxetine HCl [Paroxetine HCl] 20 mg PO DAILY 11/05/13 [History] Simvastatin 40 mg PO DAILY 11/05/13 [History] Albuterol [Proventil Neb Soln] 2.5 mg INH BID 09/22/14 [History] Ipratropium [Atrovent] 1 applic INH QID 09/22/14 [History] Aspirin [Low Dose Aspirin EC] 81 mg PO DAILY 10/18/14 [History] Multivitamin with Minerals [Multiple Vitamin] 1 tab PO DAILY 10/18/14 [History] amLODIPine [Norvasc] 5 mg PO BID 10/18/14 [History] Oxybutynin Chloride [Ditropan Xl] 10 mg PO DAILY 12/23/18 [History] Tamsulosin [Flomax] 0.4 mg PO DAILY 12/23/18 [History] Acetaminophen [Tylenol Extra Strength] 1,000 mg PO TID #200 tablet 12/28/18 [Rx] oxyCODONE 5 mg PO Q4H PRN #40 tablet 12/28/18 [Rx] Oxygen Therapy Mode: Nasal Cannula Oxygen Flow Rate (L/min): 3 Patient Handouts: Oxycodone tablets or capsules, Rib Fracture, [id number] - Discharge Summary/Plan Comment DC Time >30 min.: Yes (45 - new custodial discharge) - Patient Data Vitals - Most Recent: Last Vital Signs Temp 36.3 C 12/28/18 07:00 Pulse 45 L 12/28/18 07:00 Resp 30 H 12/28/18 07:00 BP 130/59 L 12/28/18 08:39 Pulse Ox 91 L 12/28/18 07:00 Weight - Most Recent: 100.244 kg I&O - Last 24 hours: Intake & Output 12/27/18 12/28/18 12/28/18 22:59 06:59 14:59 Intake Total 620 500 Output Total 450 300 Balance 170 200 Lab Results - Last 24 hrs: Laboratory Results - last 24 hr 12/27/18 12/28/18 Range/Units 11:24 04:20 PT 12.0 (9.5-12.0) sec INR 1.10 (0.80-1.20) Potassium 3.7 (3.6-5.2) mmol/L ELKIN Results - Last 24 hrs: Microbiology 12/26/18 09:59 Gram Stain - Final Thoracentesis Fluid Body Fluid Culture - Preliminary NO GROWTH AFTER 2 DAYS 12/24/18 19:38 Aerobic Blood Culture - Preliminary Blood - Venous NO GROWTH AFTER 3 DAYS Anaerobic Blood Culture - Preliminary NO GROWTH AFTER 3 DAYS 12/24/18 19:38 Aerobic Blood Culture - Preliminary Blood - Venous - Lab Draw NO GROWTH AFTER 3 DAYS Anaerobic Blood Culture - Preliminary NO GROWTH AFTER 3 DAYS Med Orders - Current: Current Medications Acetaminophen (Tylenol) 650 mg PO Q4H PRN PRN Reason: Pain (Mild 1-3)/fever Last Admin: 12/27/18 13:28 Dose: 650 mg Acetylcysteine (Mucomyst 20%) 200 mg NEB TIDRT [facility] Last Admin: 12/28/18 07:27 Dose: 200 mg Albuterol (Proventil Neb Soln) 2.5 mg NEB Q4H PRN PRN Reason: Shortness Of Breath/wheezing Last Admin: 12/28/18 07:27 Dose: 2.5 mg Amlodipine Besylate (Norvasc) 5 mg PO BID [facility] Last Admin: 12/28/18 08:38 Dose: 5 mg Aspirin (Halfprin) 81 mg PO DAILY [facility] Last Admin: 12/28/18 08:40 Dose: 81 mg Donepezil HCl (Aricept) 10 mg PO DAILY [facility] Last Admin: 12/28/18 08:40 Dose: 10 mg Furosemide (Lasix) 40 mg PO DAILY [facility] Last Admin: 12/28/18 08:39 Dose: 40 mg Hydromorphone HCl (Dilaudid) 0.5 mg IVPUSH Q2H PRN PRN Reason: Pain (severe 7-10) Ibuprofen (Motrin) 600 mg PO Q6H PRN PRN Reason: Pain/Fever Last Admin: 12/24/18 22:38 Dose: 600 mg Lisinopril (Prinivil) 40 mg PO DAILY [facility] Last Admin: 12/28/18 08:39 Dose: 40 mg Magnesium Oxide (Magnesium Oxide) 400 mg PO BID [facility] Last Admin: 12/28/18 08:40 Dose: 400 mg Ondansetron HCl (Zofran) 4 mg IV Q4H PRN PRN Reason: Nausea/Vomiting Oxybutynin Chloride (Oxybutynin) 5 mg PO BID [facility] Last Admin: 12/28/18 08:40 Dose: 5 mg Oxycodone HCl (Oxycodone) 5 mg PO Q4H PRN PRN Reason: Pain (moderate 4-6) Last Admin: 12/26/18 21:32 Dose: 5 mg Paroxetine HCl (Paxil) 20 mg PO DAILY [facility] Last Admin: 12/28/18 08:40 Dose: 20 mg Senna/Docusate Sodium (Senna Plus) 1 tab PO BID PRN PRN Reason: Constipation Simvastatin (Zocor) 40 mg PO DAILY [facility] Last Admin: 12/28/18 08:40 Dose: 40 mg Sodium Biphosphate/Sodium Phosphate (Fleet Enema) 133 ml RECTAL ONETIME PRN PRN Reason: Constipation Sodium Chloride (Saline Flush) 10 ml FLUSH ASDIRECTED PRN PRN Reason: Keep Vein Open Tamsulosin HCl (Flomax) 0.4 mg PO DAILY [facility] Last Admin: 12/24/18 09:35 Dose: Not Given Discontinued Medications Bisacodyl (Dulcolax) 10 mg RECTAL ONETIME ONE Stop: 12/27/18 12:01 Last Admin: 12/27/18 11:46 Dose: 10 mg Fentanyl (Sublimaze) 25 mcg IVPUSH ONETIME ONE Stop: 12/23/18 13:50 Last Admin: 12/23/18 14:06 Dose: 25 mcg Furosemide (Lasix) 40 mg IVPUSH ONETIME ONE Stop: 12/24/18 20:29 Last Admin: 12/24/18 20:39 Dose: 40 mg Sodium Chloride (Normal Saline) 1,000 mls @ 125 mls/hr IV ASDIRECTED [facility] Last Admin: 12/23/18 14:06 Dose: 125 mls/hr Sodium Chloride (Normal Saline) 1,000 mls @ 125 mls/hr IV ASDIRECTED [facility] Last Admin: 12/24/18 14:39 Dose: 125 mls/hr Azithromycin 500 mg/ Sodium (Chloride) 250 mls @ 250 mls/hr IV ONETIME ONE Stop: 12/24/18 20:38 Last Admin: 12/24/18 20:22 Dose: 250 mls/hr Ceftriaxone Sodium 2 gm/ (Sodium Chloride) 50 mls @ 100 mls/hr IV ONETIME ONE Stop: 12/24/18 20:56 Last Admin: 12/24/18 21:31 Dose: 100 mls/hr Sodium Chloride (Normal Saline) 1,000 mls @ 75 mls/hr IV ASDIRECTED [facility] Last Admin: 12/25/18 01:47 Dose: 75 mls/hr Phytonadione 5 mg/ Sodium (Chloride) 50.5 mls @ 100 mls/hr IV NOW ONE Stop: 12/25/18 16:45 Last Admin: 12/25/18 16:15 Dose: 100 mls/hr Magnesium Sulfate 2 gm/ Premix 50 mls @ 25 mls/hr IV ONETIME ONE Stop: 12/26/18 10:59 Last Admin: 12/26/18 09:54 Dose: 25 mls/hr Ipratropium [place] (Atrovent) 0.5 mg INH QIDRT [facility] Last Admin: 12/27/18 10:30 Dose: 0.5 mg Phytonadione (Aquamephyton) 1 mg SUBCUT ONETIME ONE Stop: 12/24/18 09:01 Last Admin: 12/24/18 09:27 Dose: 1 mg Potassium Chloride (Klor-Con M20) 40 meq PO ONETIME ONE Stop: 12/27/18 09:01 Last Admin: 12/27/18 08:42 Dose: 40 meq Potassium Chloride (Klor-Con M20) 40 meq PO ONETIME ONE Stop: 12/27/18 13:01 Last Admin: 12/27/18 13:29 Dose: 40 meq Warfarin Sodium (Coumadin) 7.5 mg PO DAILY@1300 SHANNAN - Exam Quality Assessment: Reports: Supplemental Oxygen General: Reports: Alert, Oriented, Cooperative, No Acute Distress Lungs: Reports: Normal Respiratory Effort GI/Abdominal Exam: Soft, No Distention Extremities: No Pedal Edema Psy/Mental Status: Reports: Alert, Normal Affect *Q Meaningful Use (DIS) - VTE *Q VTE Pharmacological Contraindications *Q: High INR Value
--- NOTE | 2018-12-28 10:48 | CR ---
CHEST: Portal CLINICAL HISTORY:Post thoracentesis COMPARISON:12/24/2018 FINDINGS: Previously seen left chest fluid has diminished. There is no evidence of pneumothorax. Patient has known multiple left fractures Impression: Decrease in left pleural fluid following thoracentesis No pneumothorax .
--- NOTE | 2018-12-28 10:52 | CR ---
CHEST: Portable CLINICAL HISTORY:Status post thoracentesis COMPARISON:12/26/2018 FINDINGS: There is no significant recurrence of left pleural fluid. There is no pneumothorax.. Impression: Recent left thoracentesis No evidence of pneumothorax
--- NOTE | 2019-01-14 13:44 | OR ---
DATE OF PROCEDURE: 12/26/2018 PROCEDURE: Thoracentesis, left. COMPLICATIONS: None. MILLED RICE BROKER: None. PREOPERATIVE DIAGNOSIS: Pleural effusion. POSTOPERATIVE DIAGNOSIS: Pleural effusion. RISKS: Risks, benefits, alternatives, and limitations including, but not limited to infection, bleeding, and pneumothorax were explained to the patient, who wished to proceed. PROCEDURE IN DETAIL: The patient was placed over a [place] stand. The fluid had been marked previously by ultrasound. The skin was anesthetized with lidocaine. A single kelly was created. Sheath was advanced as the needle was withdrawn. A total of approximately 900 mL of straw-colored fluid was able to be aspirated. This was then removed. Direct pressure was held and dressings were applied. The patient tolerated the procedure well. Deric Gaines MD /[id number]
== END 2018-12-28 11:00 | DRG 184 ==
LOC: JP.ED 12:03 → JP.MS 15:22
PROVIDERS: ADMIT Hospitalist; ATTEND Internal Medicine
PROC: 0W9B3ZX Drainage of Left Pleural Cavity, Percutaneous Approach, Diagnostic (ICD-10-PCS; principal; 2018-12-26)
DX: S22.42XA Multiple fractures of ribs, left side, initial encounter for closed fracture (principal); C91.90 Lymphoid leukemia, unspecified not having achieved remission; J94.2 Hemothorax; J98.11 Atelectasis; J90 Pleural effusion, not elsewhere classified; E86.0 Dehydration; I13.10 Hypertensive heart and chronic kidney disease without heart failure, with stage 1 through stage 4 chronic kidney disease, or unspecified chronic kidney disease; R07.89 Other chest pain; N18.3 Chronic kidney disease, stage 3 (moderate); R53.1 Weakness; J44.9 Chronic obstructive pulmonary disease, unspecified; Z87.891 Personal history of nicotine dependence; W00.0XXA Fall on same level due to ice and snow, initial encounter; N28.9 Disorder of kidney and ureter, unspecified; R50.9 Fever, unspecified; E78.00 Pure hypercholesterolemia, unspecified; G47.30 Sleep apnea, unspecified; Z99.89 Dependence on other enabling machines and devices; N40.0 Benign prostatic hyperplasia without lower urinary tract symptoms; M19.90 Unspecified osteoarthritis, unspecified site; Z79.82 Long term (current) use of aspirin; Z79.01 Long term (current) use of anticoagulants
CPT/HCPCS: 36415; 71250 ×2; 80053; 85025; 96361; 96374; 99285 ×2; J3010; J7030; 71045; 71045-26; 80048; 81001; 83735; 84132; 85610; 87040; 87070; 87205; 94640; 94667; 97110-GP; 97161-GP; 97530-GP; A9270-GY; J0456; J0696; J1940; J3430; J3475; J7050